=== PATIENT | male | born 1970 | race American Indian/Alaskan Native ===

== ENCOUNTER 2021-12-01 07:00 | Emergency (ER) | payer SELFPAY ==
--- NOTE | 2021-12-01 07:33 | Emergency Department Report ---
ED CPR HPI - General Chief Complaint: Cardiac Arrest/CPR Stated Complaint: CARDIAC ARREST Time Seen by Provider: 12/01/21 07:32 Source: EMS (Verbal report received from emergency medical services. EMS documentation not available at time of chart dictation ), RN notes reviewed Mode of arrival: Stretcher Limitations: Altered Mental Status, Physical Limitation - History of Present Illness Initial Comments: This patient is a 51-year-old gentleman who was brought to the hospital by emergency medical services as an out of hospital cardiac arrest. History obtained from EMS. EMS reports that the patient reportedly collapsed/stopped talking in front of family members. EMS reports resuscitating this patient in the field for approximately 1/2-hour. EMS reports no shockable rhythm in the field, and they report that their initial rhythm is asystole. EMS placed a lower extremity intraosseous line, [id number] ventilation, and left nasal trumpet. A Efren mechanical device is used to administer chest compressions. Upon arrival to this emergency room, the patient is pulseless without shockable rhythm, and pupils are dilated and do not react to light. Standard ACLS interventions are continued. Patient received aggressive CPR, and high-quality compressions, as well as appropriate medications. Unfortunately, in spite of a vigorous resuscitation, pulses could not be obtained, and resuscitative efforts were ultimately terminated. The patient's family is subsequently informed MD Complaint: stopped breathing -: minute(s) Place: home Initial Findings in the Field: no pulse, PEA Treatments Prior to Arrival: BMV, other airway device, chest compressions, epinephrine mgs # (3) - Related Data Allergies Allergy/AdvReac Type Severity Reaction Status Date / Time Unable to Assess Allergy Verified 12/01/21 08:50 ED Review of Systems ROS: Stated complaint: CARDIAC ARREST Other details as noted in HPI Comment: Unobtainable due to pts medical conditions ED Physical Exam - General Limitations: Altered Mental Status, Other General appearance: obtunded - Head Head exam: Present: atraumatic, normocephalic - Eye Eye exam: Absent: normal appearance (Pupils are midpoint and do not react to the) - ENT ENT exam: Present: normal exam, normal orophraynx, mucous membranes moist, normal external ear exam, other (Nasal trumpet noted in the left nostril) - Neck Neck exam: Present: normal inspection. Absent: tenderness, meningismus - Respiratory Respiratory exam: Absent: normal lung sounds bilaterally (The patient is not breathing), respiratory distress - Cardiovascular Cardiovascular Exam: Present: other (The patient is pulseless). Absent: regular rate, normal rhythm, systolic murmur, diastolic murmur, rubs, gallop - GI/Abdominal GI/Abdominal exam: Present: soft - Rectal Rectal exam: Present: deferred - Extremities Exam Extremities exam: Present: normal inspection - Back Exam Back exam: Present: normal inspection - Neurological Exam Neurological exam: Present: altered (GCS of 3) - Psychiatric Psychiatric exam: Present: other (The patient is nonverbal) - Skin Skin exam: Present: warm, dry, intact, normal color. Absent: rash ED Medical Decision Making - Medical Decision Making Differential diagnosis, including but not limited to: Tamponade, effusion, pulmonary embolism, acute coronary syndrome, hemorrhage Critical care attestation.: If time is entered above; I have spent that time in minutes in the direct care of this critically ill patient, excluding procedure time. ED Disposition Clinical Impression: Cardiac arrest Disposition: 20 Is pt being admited?: No Does the pt Need Aspirin: No Condition: Undetermined Referrals: PRIMARY CARE, [Primary Care Provider] - 3-5 Days
== END 2021-12-01 09:59 ==
LOC: ED 07:00
DX: I46.9 Cardiac arrest, cause unspecified (principal)
CPT/HCPCS: 92950; 99285